=== PATIENT | female | born 1955 | race Caucasian/White ===

== ENCOUNTER → 2016-05-25 | Outpatient (CLI) | payer OTHER ==
[~2016-05-25] MED LIST: ACETAMINOPHEN; ACETAMINOPHEN PO; ADVAIR 500-501 EACH IH; ADVAIR 500-501 EACH INH; ADVAIR 5001 DISK W/D; ADVAIR 5001 DISK W/D PO; ANTIVERT PO; ARIXTRA2.5 MG/0.1 SQ; CELEBREX PO; COMBIVENT INH14.7 G1 IH; COMBIVENT INH14.7 GM; COMBIVENT INH14.7 GM INH; COMBIVENT RESPIM4 GM INH; COMBIVENT U/D3 M2 INH; DIAZEPAM PO; DIAZEPAM2 MG PO; DUONEB 2.5-0.5 M3 ML NEB; HYDROCODON-ACE1 EAC1 PO; HYDROCODON-ACE1 EAC4 PO; HYDROCODONE/APA1 T16 PO; KETOPROFEN PO; LASIX PO; LIPITOR PO; LIPITOR40 MG PO; LORTAB 2.5/5001 TAB PO; LORTAB 7.51 TAB PO; MECLIZINE HCL25 M2 PO; NEXIUM PO; OMEPRAZOLE20 M2 PO; OMNICEF PO; PHENERGAN PO; PHENERGAN SUPP25 MG PR; PRILOSEC; PRILOSEC40 MG PO; PROVERA; PROVERA PO; SIMVASTATIN40 MG PO; SINGULAIR; SINGULAIR PO; VALIUM2 MG PO; VICODIN 5/1 TAB 5/50 PO; VICODIN 5/500 T1 TAB PO; XARELTO PO; ZITHROMAX PO; ZOCOR PO; ZOFRAN ODT4 MG PO; ZOFRAN8 MG PO; ZOFRANODT PO
--- NOTE | ~2016-05-25 | ST ---
Unit #: [id number] #: [id number] Patient: DYLAN MATHIAS [id number] [address] [address] [id number] O MR#: [id number] NAME: DYLAN MATHIAS : 1955 SEX: F STUDY DATE/TIME: 05/25/2016 UNIT: [facility] ROOM: STUDY DESCRIPTION: Stress test Attending Physician: Bridgette Branch M.D. Referring Physician: Bridgette Branch M.D. Primary Care Physician: Bridgette Branch M.D. CARDIOLOGY REPORT EXAM Stress test. FINDINGS Baseline EKG: Normal sinus rhythm. Nonspecific ST-T changes. Resting heart rate: 70 per minute. Blood pressure: 160/83. This 60-year-old patient received 0.4 mg of Lexiscan intravenously. During the test, no ischemic changes noted. No arrhythmias noted. Blood pressure was stable. INTERPRETATION 1. Nondiagnostic EKG during Lexiscan. 2. No arrhythmias noted. 3. Stable blood pressure during the test. 4. Correlate with the Cardiolite study. Dictated by... Araceli Jackman/huog TD: 05/26/2016 06:35 JOB #: [id number] CARDIOLOGY REPORT X Alia Vera MD CARDIOLOGY REPORT
--- NOTE | ~2016-05-25 | TH ---
Unit #: [id number] #: [id number] Patient: DYLAN MATHIAS [id number] [address] [address] [id number] O MR#: [id number] NAME: DYLAN MATHIAS : 1955 SEX: F STUDY DATE/TIME: 05/25/2016 UNIT: [facility] ROOM: STUDY DESCRIPTION: Cardiolite study Attending Physician: Bridgette Branch M.D. Referring Physician: Bridgette Branch M.D. Primary Care Physician: Bridgette Branch M.D. CARDIOLOGY REPORT EXAM Cardiolite study. SUMMARY This 60-year-old patient received 0.4 mg of Lexiscan intravenously followed by 33.2 mCi of Tc-99 Cardiolite and images were obtained according to standard SPECT protocol. For rest images, 10.26 mCi of Cardiolite was injected. Images were reviewed in both phases. FINDINGS The overall study quality is excellent. LV cavity size is normal on both images. There is no lung activity. RV is normal. Rotating raw data showed no significant artifact, soft tissue attenuation or GI uptake. Review of SPECT images showed a moderate decrease in the radiotracer concentration. Small to medium sized inferolateral segment on the stress images. On the rest images, this defect is reversible. Gated images showed normal LV wall thickening and wall motion with an estimated LV ejection 66%. IMPRESSION Myocardial perfusion imaging is abnormal. Intermediate likelihood of a small to medium sized inferolateral ischemia. Normal LV dimensions. Normal systolic LV function with an estimated LV ejection fraction of 66%. Dictated by... Araceli Jackman/hugo TD: 05/26/2016 06:37 JOB #: [id number] Unit #: [id number] #: [id number] Patient: DYLAN MATHIAS CARDIOLOGY REPORT X Alia Vera MD CARDIOLOGY REPORT
== END | disposition home or self-care (01) ==
LOC: CNUC 08:33
DX: R06.09 Other forms of dyspnea (principal)
CPT/HCPCS: 78452; 93017; A9500; J2785

== ENCOUNTER → 2016-07-02 | Outpatient (CLI) | payer OTHER ==
--- NOTE | ~2016-07-02 | NM69 ---
[facility] of [facility] RADIOLOGY TEXT RESULTS PATIENT: DYLAN MATHIAS LOCATION: [facility] : 55 UNIT #: [id number] AGE: [address]: Uma Garza SEX: F ORDER DR: [id number] [facility] [address] [place], [place] [address] [id number] O MR#: [id number] Acc #: [id number] NAME: DYLAN MATHIAS : 1955 SEX: F STUDY DATE/TIME: 07/02/2016 8:52 UNIT: [facility] ROOM: STUDY DESCRIPTION: NM Pulm Vent and Perf Attending Physician: Uma Garza A.P.R.N. Referring Physician: Uma Garza A.P.R.N. Ordering Physician: Uma Garza A.P.R.N. Primary Care Physician: Bridgette Branch M.D. MEDICAL IMAGING REPORT This report is preliminary unless electronic signature is present EXAM VQ scan INDICATION Shortness of breath with exertion. Symptoms have been present for about 1.5 months. She also reports her shoulders are sore and she recently started seeing a clinical trial assistant. TECHNIQUE The patient was administered 31.1 mCi of technetium 99m DTPA and 6 mCi of technetium 99m MAA particles. Images in multiple obliquities were obtained. FINDINGS The patient is noted to have relatively homogeneous radiotracer uptake within both lungs. I do not see any convincing evidence of ventilation-perfusion mismatch. Patient had a PA and lateral chest radiograph which was performed today which shows perhaps some mild cardiomegaly without evidence of vascular congestion and no acute infiltrates. IMPRESSION Low probability VQ scan. Dictated by... Hemalatha Toro M.D. THIS IS AN ELECTRONICALLY VERIFIED REPORT Hemalatha Toro M.D. at 07/03/2016 2:08 PM AFF/mjs TD: 07/02/2016 10:27 [facility] RADIOLOGY TEXT RESULTS PATIENT: DYLAN MATHIAS LOCATION: [facility] : 55 UNIT #: [id number] AGE: [address]: Uma Garza SEX: F ORDER DR: ELISEO #: [id number] MEDICAL IMAGING REPORT Page 1 of 1 COPY
--- NOTE | ~2016-07-02 | CR63 ---
[facility] A Service of [facility] & [facility] RADIOLOGY TEXT RESULTS PATIENT: DYLAN MATHIAS LOCATION: [facility] : 55 UNIT #: [id number] AGE: [address]: Uma Garza SEX: F ORDER DR: [id number] [facility] [address] [place], [place] [address] [id number] O MR#: [id number] Acc #: [id number] NAME: DYLAN MATHIAS : 1955 SEX: F STUDY DATE/TIME: 07/02/2016 7:05 UNIT: [facility] ROOM: STUDY DESCRIPTION: CR Chest 2 View Attending Physician: Uma Garza A.P.R.N. Referring Physician: Uma Garza A.P.R.N. Ordering Physician: Uma Garza A.P.R.N. Primary Care Physician: Bridgette Branch M.D. MEDICAL IMAGING REPORT This report is preliminary unless electronic signature is present EXAM PA and lateral chest. DATE OF EXAMINATION 07/02 COMPARISON 11/08 HISTORY Shortness of breath for 1 1/2 months. Correlate with V/Q scan. FINDINGS PA and lateral views are obtained. Heart size is normal. Vascular pattern is normal and the lungs are clear. CONCLUSION Stable chest. No active disease. Dictated by... Denver Roe M.D. THIS IS AN ELECTRONICALLY VERIFIED REPORT Denver Roe M.D. at 07/05/2016 7:20 AM GAVI/martínez TD: 07/02/2016 17:12 JOB #: [id number] MEDICAL IMAGING REPORT Page 1 of 1 COPY
== END | disposition home or self-care (01) ==
LOC: CNUC 06:30
DX: R06.00 Dyspnea, unspecified (principal); R93.8 Abnormal findings on diagnostic imaging of other specified body structures
CPT/HCPCS: 71020; 78582; A9540; A9567

== ENCOUNTER 2016-08-03 21:28 | Emergency (ER) | payer OTHER ==
--- NOTE | ~2016-08-03 | CT16 ---
[facility] A Service of [facility] RADIOLOGY TEXT RESULTS PATIENT: DYLAN MATHIAS LOCATION: [facility] : 55 UNIT #: [id number] AGE: [address]: Los Gaming MD SEX: F ORDER DR: [id number] [facility] [address] [place], [place] [address] [id number] E MR#: [id number] Acc #: [id number] NAME: DYLAN MATHIAS : 1955 SEX: F STUDY DATE/TIME: 08/04/2016 00:22 UNIT: [facility] ROOM: STUDY DESCRIPTION: CT Angio Chest for PE Attending Physician: Los Gaming M.D. Ordering Physician: Los Gaming M.D. Primary Care Physician: Bridgette Branch M.D. MEDICAL IMAGING REPORT This report is preliminary unless electronic signature is present EXAM Chest CTA 08/04/2016 at 00:22 INDICATION Shortness of air, cough, congestion for 2 months. Chest pain which rates 7 out of 10. TECHNIQUE Axial images were obtained through the chest following IV contrast administration. 3-D reformats were obtained. No comparison chest CT. This CT exam was performed with one or more of the following radiation dose reduction techniques: automatic exposure control, adjustment of mA and/or kV according to patient size, and iterative reconstruction. FINDINGS There is no pulmonary embolism or aortic dissection. There is atherosclerotic disease and coronary artery disease. There is no pleural or pericardial effusion. There is no adenopathy. There are no acute infiltrates. There is band-like scarring or mild atelectasis in the lingula, right middle lobe, and right upper lobe. Upper abdomen shows changes of cholecystectomy. IMPRESSION 1. No pulmonary embolism or aortic dissection. 2. Atherosclerotic disease and coronary artery disease. 3. Minimal bandlike scarring or atelectasis in the right middle lobe, right upper lobe, to a lesser degree in the lingula. 4. Not mentioned above is enlargement of the left thyroid lobe suggesting a goiter. [facility] A Service of [facility] RADIOLOGY TEXT RESULTS PATIENT: [facility]ATHI[id number] 55 UNIT #: [id number] AGE: [address]: Los Gaming MD SEX: F ORDER DR: Dictated by... Claude Aleman Jr., M.D. THIS IS AN ELECTRONICALLY VERIFIED REPORT Claude Aleman Jr., M.D. at 08/04/2016 5:55 AM ISIDRA/bruna TD: 08/04/2016 02:54 JOB #: [id number] MEDICAL IMAGING REPORT Page 1 of 1 COPY
[2016-08-03 23:06] LABS: BASOPHIL# 0.1 X10e3 (0-0.3); BASOPHIL% 1.2 % (0-2.5); DIFF IND NO; EOSINOPHIL# 0.2 X10e3 (0-0.7); EOSINOPHIL% 2.7 % (0.0-7.0); HEMATOCRIT 40.4 % (35.0-45.0); HEMOGLOBIN 13.1 gm/dL (12.0-16.0); LYMPHOCYTE# 1.7 X10e3 (1.0-3.5); LYMPHOCYTE% 22.5 % (17.0-45.0); MEAN CELL VOLUME 84.7 FL (83-96); MEAN CORPUSCULAR HEMOGLOBIN 27.6 PG (28-34); MEAN CORPUSCULAR HGB CONC 32.6 g/dL (30-36); MEAN PLATELET VOLUME 7.9 FL (6.5-11.5); MONOCYTE# 0.8 X10e3 (0-1.0); MONOCYTE% 10.8 % (3.0-12.0); NEUTROPHIL# 4.7 X10e3 (1.5-7.1); NEUTROPHIL% 62.8 % (40-75); PLATELET COUNT 232 X10e3 (140-420); RED BLOOD COUNT 4.76 X10e (3.90-5.30); RED CELL DISTRIBUTION WIDTH 15.2 % (11.0-15.5); WHITE BLOOD COUNT 7.4 X10e3 (4.0-10.5)
[2016-08-03 23:09] LABS: POC - CKMB 1.5 ng/mL (0.0-7.9); POC - TROPONIN <0.05 ng/mL (<=0.05)
[2016-08-03 23:34] LABS: CALCIUM SERUM 8.6 mg/dL (8.4-10.2); GLOM FILT RATE Estimated 61.2 mL/min (>60); POTASSIUM 3.5 mmol/L (3.5-5.1)
== END 2016-08-04 01:44 | disposition home or self-care (01) ==
LOC: CED 21:28
PROVIDERS: Emergency Medicine
DX: R06.02 Shortness of breath (principal); K21.9 Gastro-esophageal reflux disease without esophagitis; I10 Essential (primary) hypertension; J44.9 Chronic obstructive pulmonary disease, unspecified; E78.5 Hyperlipidemia, unspecified; Z90.49 Acquired absence of other specified parts of digestive tract; Z88.5 Allergy status to narcotic agent
CPT/HCPCS: 36415; 71275; 80048; 82553; 84484; 85025; 96374; 99284; J2930; Q9967

== ENCOUNTER 2016-09-03 12:40 | Emergency (ER) | payer OTHER ==
--- NOTE | ~2016-09-03 | CR58 ---
[facility] A Service of [facility] RADIOLOGY TEXT RESULTS PATIENT: DYLAN MATHIAS LOCATION: [facility] : 55 UNIT #: [id number] AGE: [address]: Kamilla Simmons MD SEX: F ORDER DR: [id number] [facility] [address] [place], [place] [address] [id number] E MR#: [id number] Acc #: [id number] NAME: DYLAN MATHIAS : 1955 SEX: F STUDY DATE/TIME: 09/03/2016 15:36 UNIT: [facility] ROOM: STUDY DESCRIPTION: CR Cervical Spine 2 or 3 Views Attending Physician: Kamilla Simmons M.D. Ordering Physician: Kamilla Simmons M.D. Primary Care Physician: Bridgette Branch M.D. MEDICAL IMAGING REPORT This report is preliminary unless electronic signature is present EXAM Cervical spine series, 08/24/16, 1536 hours. CLINICAL HISTORY Neck pain with stiffness for 5 days. No reported injury. FINDINGS AP, lateral, open-mouth and swimmer's views are performed. C1 through T1 are visualized. There is no fracture or malalignment. There is mild endplate spurring at C5-6. Mild facet degenerative change. No prevertebral soft tissue swelling. IMPRESSION 1. No fracture or subluxation. Mild endplate spurring at C5-6 and mild facet degenerative change. No acute findings. Dictated by... Madiha Nova M.D. THIS IS AN ELECTRONICALLY VERIFIED REPORT Madiha Nova M.D. at 09/06/2016 10:35 AM HERNANDEZ/elmira TD: 09/03/2016 20:19 JOB #: [id number] MEDICAL IMAGING REPORT Page 1 of 1 COPY
--- NOTE | ~2016-09-03 | CT71 ---
[facility] A Service [facility] RADIOLOGY TEXT RESULTS PATIENT: DYLAN MATHIAS LOCATION: [facility] : 55 UNIT #: [id number] AGE: [address]: Kamilla Simmons MD SEX: F ORDER DR: [id number] [facility] [address] [place], [place] [address] [id number] E MR#: [id number] Acc #: [id number] NAME: DYLAN MATHIAS : 1955 SEX: F STUDY DATE/TIME: 09/03/2016 15:49 UNIT: [facility] ROOM: STUDY DESCRIPTION: CT Head Wo Contrast Attending Physician: Kamilla Simmons M.D. Ordering Physician: Kamilla Simmons M.D. Primary Care Physician: Bridgette Branch M.D. MEDICAL IMAGING REPORT This report is preliminary unless electronic signature is present EXAM CT head 09/03/2016 HISTORY Headache. Left side neck pain and headaches since 08/29/2016. TECHNIQUE CT head for performed skull base through vertex without venous contrast. This CT exam was performed with one or more of the following radiation dose reduction techniques: automatic exposure control, adjustment of mA and/or kV according to patient size, and iterative reconstruction. COMPARISON STUDIES 11/09/2015. FINDINGS Motion degraded study. Brainstem unremarkable. Cerebellum and cerebral hemispheres show normal rodriguez matter-white matter differentiation. No hemorrhage. No evidence of acute cortical ischemia. Midline structures nondisplaced. Chronic encephalomalacic change posterior-superior right parietal lobe, likely reflecting remote vascular insult. No change from prior study. No acute basal ganglia abnormality. Ventricles, cisterns, sulci normal in size and contour. No intra- or extraaxial mass effect or abnormal intracranial fluid collection. Cavernous carotid arterial calcifications. Intraorbital soft tissues unremarkable in visualized extent. The visualized paranasal sinuses and mastoid air cells are clear. IMPRESSION 1. Motion degraded study. No acute abnormalities seen in the brain. If patient has ongoing neurologic symptoms, particularly in light of the limitations of this study, consider follow-up imaging. [facility] A Service [facility] RADIOLOGY TEXT RESULTS PATIENT: DYLAN MATHIAS LOCATION: [facility] : 55 UNIT #: [id number] AGE: [address]: Kamilla Simmons MD SEX: F ORDER DR: 2. Area of chronic encephalomalacic change posterior-superior right parietal lobe, likely reflecting remote vascular insult. 3. Cavernous carotid arterial calcifications. Dictated by... Denver Sharma M.D. THIS IS AN ELECTRONICALLY VERIFIED REPORT Denver Sharma M.D. at 09/08/2016 10:15 AM GREGG/jarred TD: 09/03/2016 20:53 JOB #: [id number] MEDICAL IMAGING REPORT Page 1 of 1 COPY
== END 2016-09-03 16:40 | disposition home or self-care (01) ==
LOC: CED 12:40
DX: S16.1XXA Strain of muscle, fascia and tendon at neck level, initial encounter (principal); X58.XXXA Exposure to other specified factors, initial encounter
CPT/HCPCS: 70450; 72040; 99284

== ENCOUNTER → 2016-09-30 | Outpatient (CLI) | payer OTHER | END | disposition home or self-care (01) | LOC: CECH 09-20 13:00 | DX: R06.00 Dyspnea, unspecified (principal); I50.30 Unspecified diastolic (congestive) heart failure; I51.7 Cardiomegaly | CPT/HCPCS: 93306 ==